=== PATIENT | male | born 1955 | race Caucasian/White ===

== ENCOUNTER 2018-10-10 20:52 | Emergency (ER) | payer OTHER, SELFPAY ==
[2018-10-10 20:59] VITALS: BP 182/89; PULSE 80; RESP 18; TEMP 37.1; O2SAT 94
--- NOTE | 2018-10-10 21:20 | ED.GENADUL_ITS ---
Discharge Plan Disposition Patient Disposition: HOME Condition: Stable Discharge Details Chief Complaint: Urinary Clinical Impression: Acute urinary retention Primary Care Provider: None,None ED Provider: Kevin Beltran Home Meds and New Rx's Prescriptions: No Action tamsulosin [Flomax] 0.4 mg Capsule 0.4 mg PO DAILY RF: 0 zolpidem [Ambien CR] 12.5 mg Tablet,Ext Release Multiphase See Rx Instructions .ROUTE .COMPLEX RF: 0 Discharge Instructions Instructions: Urinary Retention in Men (ED), Deleon Catheter Placement and Care (ED) Additional Instructions: Please follow-up with your primary care provider as soon as possible for removal of your Deleon catheter. If you notice any worsening of your symptoms, or any new symptoms such as blood in your urine, vomiting, diarrhea, fever, chills, shortness of breath, chest pain, numbness, weakness, or fainting , please return immediately to the emergency department for reevaluation. Please follow up with your primary care provider as soon as possible for reassessment and reevaluation. As always, it was a pleasure participating in your medical care today. Medical Decision Making This is a pleasant 63-year-old male with a past medical history of benign prostatic hyperplasia, who takes tamsulosin, who presents for urinary re tention. He has a strong history of urinary retention multiple times in the past requiring Deleon catheterization. Today he presents having not been able to fully urinate since this morning. He denies any associated symptoms of fever, chills, dysuria or significant abdominal pain. He does demonstrate over 500 cc on bladder scan. Patient is traveling back home by flight tomorrow, and will be following up with his PCP and his urologist. We will place a Deleon catheter with a leg bag for patient to ease and use secondary to his travel limitations. We will get a urinalysis to rule out any infection. I imagine this will be negative. Pending a benign laboratory workup the patient will be discharged home with close follow-up with his urologist and PCP. We discussed red flags which to return. I have extensively reviewed the treatment plan and discharge instructions with the patient. I have addressed all patient concerns at this time. The patient was made aware of what symptoms to monitor for that would warrant a return to the emergency department. Discussed the plan with the patient, they demonstrate verbal understanding and agreement with our assessment and plan at this time. 10:27 PM Patient's urinalysis shows no signs of infection, Deleon was placed without incident. There is a small amount of RBCs which is clinically consistent with placement of his Deleon which was slightly more challenging secondary to the patient's prostate issues. No evidence of infection at all. Patient has a leg bag in place, he will be discharged home with close follow-up with his PCP and urologist back in [place]. HPI General Date/Time Provider Initiated Documentation: 10/10/18 21:01 . 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 He has a notable history of BPH, and has had multiple episodes of urinary retention in the past. He is from [place] and is here visiting family. He sees a urologist and PCP in [place] for these issues. He has required Deleon catheterization and leg bags in the past. He states that this morning he has been unable to fully urinate. He is able to get out a small amount earlier this morning but is been unable to get any more out since then. He denies any hematuria, burning, dysuria, fever or chills. He denies any significant abdominal pain or tenderness. Is been having regular bowel movements, he denies vomiting, diarrhea, chest pain, shortness of breath, change in medications. He has been taking his Flomax as directed. Patient denies any other complaints at this time. Past surgical history is positive for left hip replacement, and appendectomy. He denies any IV or illicit drug use. He denies any pertinent family history. Related Data Home Medications Medication Instructions Recorded Confirmed tamsulosin [Flomax] 0.4 mg PO DAILY 10/10/18 10/10/18 zolpidem [Ambien CR] See Rx Instructions .ROUTE .COMPLEX 10/10/18 10/10/18 Allergies Allergy/AdvReac Type Severity Reaction Status Date / Time No Known Allergies Allergy Unverified 10/10/18 21:12 General Stated Complaint: Urinary BAUDILIO: 4 Review of Systems Review of Systems All systems reviewed & are unremarkable except as noted in HPI and below PFSH Social History Smoking/Tobacco Use Status: Never Exam Narrative Exam Narrative: 1.Const: Well-nourished, Well-developed, appearing stated age 2.Eyes: PERRL, no conjunctival injection, and symmetrical lids. 3.ENT: Atraumatic external nose and ears. Moist MM. Neck: Symmetric, trachea midline, No thyromegaly. 4.CVS: +S1/S2, No murmurs or gallops. Peripheral pulses 2+ and equal in all extremities. Brisk capillary refill in all extremities. 5.RESP: Unlabored respiratory effort. Clear to auscultation bilaterally. No wheezes rales or rhonchi 6.GI: Soft, Nontender/Nondistended, No hepatosplenomegaly. No guarding or rebound. Minimal fullness in the suprapubic region. No flank or CVA tenderness. Normal male genitalia, no urethral discharge. No lesions or abnormalities. 7.MSK: Normocephalic/Atraumatic, Extremities w/o deformity or ttp No cyanosis or clubbing, Normal movement of all extremities 8.Skin: Warm, Dry. No rashes or lesions. 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 Sensation grossly intact, no focal neurologic deficits. 10.Psych: (AAO) x3. Appropriate mood and affect Course Vital Signs Temperature 37.1 C 10/10/18 20:59 Pulse 80 10/10/18 20:59 Respiratory Rate 18 10/10/18 20:59 Blood Pressure 182/89 H 10/10/18 20:59 Pulse Oximetry 94 L 10/10/18 20:59 Temperature 37.1 C 10/10/18 20:59 Temperature Source Temporal Artery Scan 10/10/18 20:59 Pulse 80 10/10/18 20:59 Respiratory Rate 18 10/10/18 20:59 Respiratory Effort 10/10/18 20:59 Blood Pressure 182/89 H 10/10/18 20:59 Pulse Oximetry 94 L 10/10/18 20:59 Oxygen Delivery Method Room Air 10/10/18 20:59 Oxygen Flow Rate 0 10/10/18 20:59 Pain Level 0 10/10/18 21:07
[2018-10-10] MEDS: Lidocaine 2% Jelly 11 ML SYR (21:43)
[2018-10-10 22:09] LABS: Bilirubin Negative (Negative); Blood Moderate (Negative); Clarity Clear; Glucose Negative (Negative); Ketones Negative (Negative); Leukocyte Esterase Negative (Negative); Nitrite Negative (Negative); Specific Gravity 1.025 (1.005-1.025); Urobilinogen 0.2 EU/dL (Up TO 0.2)
--- NOTE | 2018-10-10 22:16 | NUR.NOTE ---
Nursing Note: gave pt a leg bag for his wills and set it up
[2018-10-10 22:21] LABS: Bacteria Negative HPF (Negative); C & S Indicated? No; Casts Negative LPF (Negative); Crystals Negative HPF (Negative); Epithelial Cells Negative HPF (Negative); Mucus Negative (Negative); Other Cells Negative (Negative); RBC >50 (0-2); WBC Negative HPF (0-5)
[2018-10-10] MEDS: Acetaminophen 500 MG TAB (22:30)
[2018-10-10] MEDS: Ibuprofen 800 MG TAB (22:31)
== END 2018-10-10 22:37 | disposition home or self-care (01) ==
LOC: ER 22:07
PROVIDERS: Emergency Provider Student in an Organized Health Care Education/Training Program
DX: N40.1 Benign prostatic hyperplasia with lower urinary tract symptoms (principal); R33.8 Other retention of urine
CPT/HCPCS: 51702; 99283; 81003; 81015